=== PATIENT | male | born 1960 | race Caucasian/White ===

== ENCOUNTER 2024-07-16 14:51 | Inpatient (IN) | payer MEDICARE, OTHER ==
[~2024-07-16] VITALS: Ht 165.1 cm; Wt 75.0 kg
[2024-07-16] MEDS ORDERED: DEXTROSE 50%-WATER 25 GM/50 ML SYRINGE IVP PRN (16:30)
[2024-07-16] MEDS ORDERED: ZOLPIDEM TARTRATE 5 MG TABLET PO PRN (16:30)
[2024-07-16] MEDS ORDERED: ACETAMINOPHEN 325 MG TABLET PO PRN (16:30)
[2024-07-16] MEDS ORDERED: OxyCODONE HCL/ACETAMINOPHEN 5-325 MG TABLET PO PRN (16:30)
[2024-07-16] MEDS ORDERED: MAGNESIUM HYDROXIDE SUSPENSION 30 ML UDCUP PO PRN (16:30)
[2024-07-16 16:35] LABS: BASOPHILS % (AUTO) 0.6 % (0.0-2.0); EOSINOPHILS % (AUTO) 2.5 % (1.0-6.0); HEMATOCRIT 38.3 % (41-53); HEMOGLOBIN 12.4 g/dL (13.5-17.5); LYMPHOCYTES # (AUTO) 2.2 K/uL (1.0-4.8); LYMPHOCYTES % (AUTO) 22.1 % (22.0-44.0); MEAN CORPUSCULAR HEMOGLOBIN 29.8 pg (26.0-34.0); MEAN CORPUSCULAR HGB CONC 32.3 G/dL (31.0-37.0); MEAN CORPUSCULAR VOLUME 92 fL (80-100); MONOCYTES # (AUTO) 0.5 K/uL (0.1-1.0); NEUTROPHILS # (AUTO) 6.9 K/uL (1.8-7.7); NEUTROPHILS % (AUTO) 69.8 % (40.0-70.0); PLATELET COUNT (AUTO) 270 K/uL (150-450); RED BLOOD CELL COUNT(AUTO) 4.16 MIL/uL (4.50-5.90); WHITE BLOOD COUNT (AUTO) 9.9 K/uL (4.5-11.0)
[2024-07-16 16:39] LABS: ANION GAP 12 mmol/L (8-16); CALCIUM, TOTAL 9.9 mg/dL (8.8-10.5); CARBON DIOXIDE 23 mmol/L (22-29); CHLORIDE 107 mmol/L (98-107); CREATININE 1.12 mg/dL (0.60-1.30); GLOMERULAR FILTR. RATE CALC > 60 mL/min (>60); GLUCOSE,RANDOM 198 mg/dL (70-110); POTASSIUM 4.6 mmol/L (3.5-5.1); SODIUM SERUM 142 mmol/L (136-145); UREA NITROGEN, BLOOD 33 mg/dL (7-18)
[2024-07-16 16:52] LABS: ALANINE AMINOTRANSFERASE 29 U/L (12-78); ALBUMIN 2.9 g/dL (3.4-5.0); ALKALINE PHOSPHATASE 149 U/L (46-116); ASPARTATE AMINOTRANSFERASE 17 U/L (15-37); BILIRUBIN,TOTAL 0.3 mg/dL (0.1-1.0); LIPASE 24 U/L (16-77); TOTAL PROTEIN, SERUM 7.5 g/dL (6.4-8.2)
[2024-07-16 16:57] LABS: APPEARANCE,URINE CLEAR (CLEAR); BILIRUBIN,URINE NEGATIVE (NEGATIVE); COLOR,URINE LIGHT YELLOW (YELLOW); GLUCOSE, URINE (UA) >=1000 mg/dL (NEGATIVE); KETONES,URINE NEGATIVE (NEGATIVE); LEUKOCYTE ESTERASE ,URINE NEGATIVE (NEGATIVE); NITRATE,URINE NEGATIVE (NEGATIVE); OCCULT BLOOD,URINE NEGATIVE (NEGATIVE); PROTEIN,URINE NEGATIVE (NEGATIVE); SPECIFIC GRAVITIY, URINE 1.019 (1.003-1.030); UROBILINOGEN,URINE <=1.0 mg/dL (<=1.0)
[2024-07-16 17:13] LABS: BACTERIA,URINE Few /HPF (None Seen); RBC,URINE 0-2 /HPF (0-2); SQUAMOUS EPITHELIAL CELL,UR Rare /LPF (None Seen); WBC,URINE 0-2 /HPF (0-5)
[2024-07-16] MEDS: TAMSULOSIN HCL 0.4 MG CAPSULE PO SCH (17:37)
[2024-07-16 19:56] LABS: GLUCOMETER DEV NAME(LOC) ER.7; GLUCOSE,POINT OF CARE 143 MG/DL (70-110)
[2024-07-16] MEDS: DOCUSATE SODIUM 100 MG CAPSULE PO SCH (20:39)
[2024-07-16] MEDS ORDERED: TAMSULOSIN HCL 0.4 MG CAPSULE PO SCH ×2 (21:00)
[2024-07-16] MEDS: HEPARIN SODIUM,PORCINE 5,000 UNITS/ML VIAL SQ SCH (23:26)
[2024-07-16 23:30] VITALS: BP 151/88; PULSE 80; RESP 18; TEMP 97.7; O2SAT 98
[2024-07-17] MEDS ORDERED: GABA-1181 PO (00:18)
[2024-07-17] MEDS ORDERED: METO25 PO (00:18)
[2024-07-17] MEDS ORDERED: TIMO5DRO21 OU (00:18)
[2024-07-17] MEDS ORDERED: DORZ10DR6 OU (00:18)
[2024-07-17] MEDS ORDERED: LOSA-381 PO (00:18)
[2024-07-17] MEDS ORDERED: CLOP75TA60 PO (00:18)
[2024-07-17] MEDS ORDERED: RIVA10TA PO (00:18)
[2024-07-17 03:57] VITALS: BP 114/62; PULSE 78; RESP 18; TEMP 98.1; O2SAT 98
[2024-07-17] MEDS: INSULIN LISPRO 100 UNITS/ML SQ PRN (06:29)
[2024-07-17 07:18] VITALS: BP 126/68; PULSE 82; RESP 18; TEMP 98.2; O2SAT 96
[2024-07-17] MEDS: ATORVASTATIN CALCIUM 20 MG TABLET PO SCH (08:27)
[2024-07-17] MEDS: ASPIRIN 81 MG CHEWABLE TABLET PO SCH (08:27)
[2024-07-17] MEDS: FAMOTIDINE 20 MG TABLET PO SCH (08:28)
[2024-07-17 09:30] LABS: GLUCOMETER DEV NAME(LOC) 4E.2; GLUCOSE,POINT OF CARE 182 MG/DL (70-110)
[2024-07-17 11:40] LABS: GLUCOMETER DEV NAME(LOC) 4E.2; GLUCOSE,POINT OF CARE 210 MG/DL (70-110)
[2024-07-17 12:07] VITALS: BP 102/62; PULSE 71; RESP 18; TEMP 97.9; O2SAT 98
[2024-07-17 16:04] VITALS: BP 121/75; PULSE 80; RESP 18; TEMP 98.1; O2SAT 100
[2024-07-17 20:38] VITALS: BP 129/87; PULSE 87; RESP 18; TEMP 98; O2SAT 98
[2024-07-18 05:14] VITALS: BP 152/86; PULSE 79; RESP 20; TEMP 98; O2SAT 97
[2024-07-18 06:20] LABS: GLUCOMETER DEV NAME(LOC) 5S.1D; GLUCOSE,POINT OF CARE 262 MG/DL (70-110)
[2024-07-18 10:11] VITALS: RESP 18
[2024-07-18 11:40] LABS: GLUCOMETER DEV NAME(LOC) 5S.1D; GLUCOSE,POINT OF CARE 190 MG/DL (70-110)
[2024-07-18] MEDS ORDERED: DOCU-385 PO (15:13)
[2024-07-18] MEDS ORDERED: ATOR20TA PO (15:13)
[2024-07-18] MEDS ORDERED: FAMO20 PO (15:14)
[2024-07-18] MEDS ORDERED: TAMS0.4C94 PO (15:14)
[2024-07-18] MEDS ORDERED: ACET-2247 PO (15:15)
[2024-07-18] MEDS ORDERED: MAGN-169 PO (15:16)
[2024-07-18] MEDS ORDERED: INSU100V SQ (15:18)
[2024-07-18 16:14] VITALS: BP 148/97; PULSE 87; RESP 18; TEMP 98; O2SAT 96
[2024-07-18 20:30] VITALS: BP 149/88; PULSE 94; RESP 18; TEMP 97.5; O2SAT 97
[2024-07-18 23:40] LABS: GLUCOMETER DEV NAME(LOC) 6N.1B; GLUCOSE,POINT OF CARE 190 MG/DL (70-110)
[2024-07-19 04:23] VITALS: BP 145/81; PULSE 95; RESP 18; TEMP 97.7; O2SAT 95
[2024-07-19 07:32] LABS: BASOPHILS % (AUTO) 0.6 % (0.0-2.0); EOSINOPHILS % (AUTO) 1.1 % (1.0-6.0); HEMATOCRIT 36.5 % (41-53); LYMPHOCYTES # (AUTO) 2.5 K/uL (1.0-4.8); LYMPHOCYTES % (AUTO) 25.6 % (22.0-44.0); MEAN CORPUSCULAR HEMOGLOBIN 30.1 pg (26.0-34.0); MEAN CORPUSCULAR HGB CONC 32.9 G/dL (31.0-37.0); MEAN CORPUSCULAR VOLUME 91 fL (80-100); MONOCYTES # (AUTO) 0.4 K/uL (0.1-1.0); MONOCYTES % (AUTO) 4.4 % (2.0-9.0); NEUTROPHILS # (AUTO) 6.6 K/uL (1.8-7.7); NEUTROPHILS % (AUTO) 68.3 % (40.0-70.0); PLATELET COUNT (AUTO) 240 K/uL (150-450); RED BLOOD CELL COUNT(AUTO) 3.99 MIL/uL (4.50-5.90); RED CELL DISTRIBUTION WIDTH 14.2 % (11.5-14.5); WHITE BLOOD COUNT (AUTO) 9.6 K/uL (4.5-11.0)
[2024-07-19 07:44] LABS: ANION GAP 9 mmol/L (8-16); CALCIUM, TOTAL 8.9 mg/dL (8.8-10.5); CARBON DIOXIDE 25 mmol/L (22-29); CHLORIDE 107 mmol/L (98-107); GLOMERULAR FILTR. RATE CALC > 60 mL/min (>60); GLUCOSE,RANDOM 221 mg/dL (70-110); POTASSIUM 4.1 mmol/L (3.5-5.1); SODIUM SERUM 141 mmol/L (136-145); UREA NITROGEN, BLOOD 21 mg/dL (7-18)
[2024-07-19 08:10] VITALS: BP 116/70; PULSE 97; RESP 18; TEMP 97.8; O2SAT 100
[2024-07-19 10:01] LABS: GLUCOMETER DEV NAME(LOC) 5S.1D; GLUCOSE,POINT OF CARE 214 MG/DL (70-110)
[2024-07-19 20:21] LABS: GLUCOMETER DEV NAME(LOC) 4E.2; GLUCOSE,POINT OF CARE 266 MG/DL (70-110)
[2024-07-19 20:21] LABS: GLUCOMETER DEV NAME(LOC) 4E.2; GLUCOSE,POINT OF CARE 217 MG/DL (70-110)
== END 2024-07-19 16:30 | DRG 726 ==
LOC: EMS 14:51 → EDH 16:20 → 4E 23:10
PROVIDERS: ADMIT Internal Medicine; ATTEND Internal Medicine
DX: N40.1 Benign prostatic hyperplasia with lower urinary tract symptoms (principal); E11.40 Type 2 diabetes mellitus with diabetic neuropathy, unspecified; E11.319 Type 2 diabetes mellitus with unspecified diabetic retinopathy without macular edema; E11.51 Type 2 diabetes mellitus with diabetic peripheral angiopathy without gangrene; H54.62 Unqualified visual loss, left eye, normal vision right eye; D63.8 Anemia in other chronic diseases classified elsewhere; L89.619 Pressure ulcer of right heel, unspecified stage; I25.10 Atherosclerotic heart disease of native coronary artery without angina pectoris; N36.8 Other specified disorders of urethra; R33.8 Other retention of urine; Z79.4 Long term (current) use of insulin; Z83.3 Family history of diabetes mellitus
CPT/HCPCS: 76770; 80048; 80076; 81001; 82962; 83690; 85025; 87081; 99285; G0378; J1644